=== PATIENT | female | born 1970 | race African-American/Black ===

== ENCOUNTER 2017-03-30 11:58 | Emergency (ER) | payer OTHER ==
[~2017-03-30] VITALS: Ht 149.9 cm; Wt 81.7 kg
[2017-03-30] MEDS ORDERED: NAPROSYN500 MG PO (12:28)
[2017-03-30] MEDS ORDERED: FLEXERIL PO (12:28)
[2017-03-30] MEDS ORDERED: ACETAMINOPHEN500 M3 PO (12:29)
[2017-03-30] MEDS ORDERED: PHENERGAN 25 MG25 M1 PO (13:04)
[2017-03-30 13:44] VITALS: BP 128/78
== END 2017-03-30 13:52 | disposition home or self-care (01) ==
LOC: ER 11:58
DX: G43.909 Migraine, unspecified, not intractable, without status migrainosus (principal)